=== PATIENT | female | born 1960 | race African-American/Black ===

== ENCOUNTER 2016-11-20 14:35 | Emergency (ER) | payer MEDICAID ==
[~2016-11-20] VITALS: Ht 172.7 cm; Wt 91.0 kg
[~2016-11-20 14:35] MED LIST: ASPI-1159 PO; DOCU-138 PO; LISI40TA4 PO; METO-298 PO; MULT-1146 PO; POTA-9 PO
[2016-11-20 14:40] VITALS: BP 165/87
[2016-11-20] MEDS ORDERED: MAGNESIUM/ALUMINUM HYDROXIDE/SIMETHICONE 30ML UDC PO STA (15:21)
[2016-11-20] MEDS ORDERED: VISCOUS LIDOCAINE 2% 15 ML UDC PO STA (15:21)
[2016-11-20 15:44] LABS: BASOPHILS % 0.4 % (0.0-2.0); EOSINOPHILS % 0.8 % (0.0-5.0); HEMATOCRIT. 36.7 % (36.0-48.0); HEMOGLOBIN. 12.6 g/dL (12.0-16.0); LYMPHOCYTES % 24.3 % (20.0-50.0); MEAN CORPUSCULAR HEMOGLOBIN 37.3 pg (28.0-32.0); MEAN CORPUSCULAR VOLUME 108.8 fL (81.0-99.0); MONOCYTES % 4.5 % (2.0-8.0); PLATELET 291 x1000/uL (130-400); RED BLOOD CELL COUNT 3.38 mill/uL (4.2-5.4); RED CELL DISTRIBUTION WIDTH 15.2 % (11.6-14.6)
[2016-11-20 15:45] LABS: CHLORIDE 105 mEq/L (98-107)
[2016-11-20 15:47] LABS: CARBON DIOXIDE 30 mEq/L (21-32)
[2016-11-20 16:57] LABS: CLARITY URINE CLEAR (CLEAR); COLOR URINE YELLOW (YELLOW); GLUCOSE URINE NEGATIVE (NEGATIVE); KETONES URINE NEGATIVE (NEGATIVE); LEUKOCYTE ESTERASE URINE NEGATIVE (NEGATIVE); NITRITE URINE NEGATIVE (NEGATIVE); OCCULT BLOOD URINE NEGATIVE (NEGATIVE); PH URINE 7.5 (4.5-8.0); PROTEIN URINE NEGATIVE (NEGATIVE); SPECIFIC GRAVITY URINE 1.011 (1.005-1.030); UROBILINOGEN URINE 0.2 E.U./dL (0.2-1.0)
== END 2016-11-20 17:25 | disposition home or self-care (01) ==
LOC: ER 15:52
DX: K14.6 Glossodynia (principal); I10 Essential (primary) hypertension; Z79.82 Long term (current) use of aspirin; Z88.5 Allergy status to narcotic agent; Z88.8 Allergy status to other drugs, medicaments and biological substances
CPT/HCPCS: 36415; 80048; 81003; 85025; 99285

== ENCOUNTER 2017-01-12 01:31 | Emergency (ER) | payer MEDICAID ==
[~2017-01-12] VITALS: Ht 154.9 cm; Wt 69.0 kg
[~2017-01-12 01:31] MED LIST changes: -METO-298 PO; +METO-385 PO
[2017-01-12 03:55] VITALS: BP 140/83
[2017-01-12] MEDS ORDERED: ACETAMINOPHEN 500MG TABLET PO ONE (05:00)
== END 2017-01-12 05:20 | disposition home or self-care (01) ==
LOC: ER 01:31
DX: S40.021A Contusion of right upper arm, initial encounter (principal); W22.8XXA Striking against or struck by other objects, initial encounter; Y93.89 Activity, other specified; Y92.89 Other specified places as the place of occurrence of the external cause; I10 Essential (primary) hypertension; Z88.6 Allergy status to analgesic agent; Z88.8 Allergy status to other drugs, medicaments and biological substances; Z88.5 Allergy status to narcotic agent; Z79.82 Long term (current) use of aspirin
CPT/HCPCS: 99283

== ENCOUNTER 2017-01-18 10:05 | Emergency (ER) | payer MEDICAID ==
[~2017-01-18] VITALS: Ht 154.9 cm; Wt 69.0 kg
[2017-01-18 11:48] LABS: BASOPHILS % 0.6 % (0.0-2.0); EOSINOPHILS % 1.2 % (0.0-5.0); HEMATOCRIT. 44.4 % (36.0-48.0); HEMOGLOBIN. 15.2 g/dL (12.0-16.0); MEAN CORPUSCULAR HEMOGLOBIN 32.3 pg (28.0-32.0); MEAN CORPUSCULAR VOLUME 94.5 fL (81.0-99.0); MEAN PLATELET VOLUME 9.5 fl (7.4-10.4); MONOCYTES % 3.8 % (2.0-8.0); NEUTROPHILS % 78.4 % (40.0-76.0); PLATELET 267 x1000/uL (130-400); RED CELL DISTRIBUTION WIDTH 17.1 % (11.6-14.6)
[2017-01-18 11:53] LABS: PARTIAL THROMBOPLASTIN TIME 26.9 sec (23.4-31.0); PROTHROMBIN TIME 10.2 sec (9.4-11.6)
[2017-01-18 12:02] LABS: CARBON DIOXIDE 30 mEq/L (21-32); CHLORIDE 102 mEq/L (98-107); TROPONIN I < 0.02 ng/mL (0.00-0.04)
[2017-01-18 12:03] LABS: CREATINE KINASE 194 IU/L (26-192); CREATINE KINASE MB FRACTION 1.1 ng/mL (0.5-3.6)
[2017-01-18] MEDS ORDERED: ACETAMINOPHEN 325MG TABLET PO ONE (12:30)
[2017-01-18] MEDS ORDERED: POTASSIUM CHLORIDE 20MEQ TABLET SR PO ONE (12:30)
[2017-01-18 12:46] LABS: *AMPHETAMINES SCREEN URINE NEGATIVE (NEGATIVE); *BARBITURATES SCREEN URINE NEGATIVE (NEGATIVE); *BENZODIAZEPINES SCREEN URINE NEGATIVE (NEGATIVE); *COCAINE SCREEN URINE NEGATIVE (NEGATIVE); CANNABINOID URINE SCREEN NEGATIVE (NEGATIVE); METHADONE URINE SCREEN NEGATIVE (NEGATIVE); OPIATES URINE SCREEN NEGATIVE (NEGATIVE); PHENCYCLIDINE URINE SCREEN NEGATIVE (NEGATIVE)
[2017-01-18 13:52] VITALS: BP 133/75
== END 2017-01-18 13:55 | disposition home or self-care (01) ==
LOC: ER 11:32
DX: M79.1 Myalgia (principal); I10 Essential (primary) hypertension; E87.6 Hypokalemia; Z76.0 Encounter for issue of repeat prescription
CPT/HCPCS: 36415; 71010; 80053; 80305; 82550; 82553; 83690; 83735; 83880; 84484; 85025; 85610; 85730; 93005; 99285

== ENCOUNTER 2017-09-08 13:55 | Emergency (ER) | payer MEDICAID ==
[~2017-09-08] VITALS: Ht 154.9 cm; Wt 68.2 kg
[2017-09-08] MEDS ORDERED: TETANUS, DIPHTHERIA, PERTUSSIS VAC/PF 0.5ML (>7YR OLD) IM ONE (14:15)
[2017-09-08 14:40] LABS: BASOPHILS % 0.6 % (0.0-2.0); EOSINOPHILS % 3.9 % (0.0-5.0); HEMATOCRIT. 38.7 % (36.0-48.0); LYMPHOCYTES % 23.8 % (20.0-50.0); MEAN CORPUSCULAR HEMOGLOBIN 28.6 pg (28.0-32.0); MEAN CORPUSCULAR VOLUME 85.4 fL (81.0-99.0); MEAN PLATELET VOLUME 9.2 fl (7.4-10.4); MONOCYTES % 6.5 % (2.0-8.0); NEUTROPHILS % 65.2 % (40.0-76.0); PLATELET 226 x1000/uL (130-400); RED BLOOD CELL COUNT 4.53 mill/uL (4.2-5.4); RED CELL DISTRIBUTION WIDTH 13.4 % (11.6-14.6)
[2017-09-08 14:45] LABS: CHLORIDE 109 mEq/L (98-107)
[2017-09-08] MEDS ORDERED: KETOROLAC 60MG/2ML VIAL IM ONE (16:00)
[2017-09-08 16:14] VITALS: BP 132/78
== END 2017-09-08 16:16 | disposition home or self-care (01) ==
LOC: ER 15:52
DX: M25.571 Pain in right ankle and joints of right foot (principal); I10 Essential (primary) hypertension; Z23 Encounter for immunization; Z88.4 Allergy status to anesthetic agent; Z88.5 Allergy status to narcotic agent; Z88.6 Allergy status to analgesic agent; Z88.8 Allergy status to other drugs, medicaments and biological substances; Z79.82 Long term (current) use of aspirin
CPT/HCPCS: 36415; 73610; 80048; 85025; 96372; 99285; J1885; Z7610; 90715

== ENCOUNTER 2017-11-30 12:26 | Emergency (ER) | payer MEDICAID ==
[~2017-11-30] VITALS: Ht 162.6 cm; Wt 69.9 kg
[2017-11-30 13:07] LABS: BASOPHILS % 0.6 % (0.0-2.0); EOSINOPHILS % 2.1 % (0.0-5.0); HEMATOCRIT. 39.5 % (36.0-48.0); HEMOGLOBIN. 13.6 g/dL (12.0-16.0); LYMPHOCYTES % 15.9 % (20.0-50.0); MEAN CORPUSCULAR HEMOGLOBIN 29.3 pg (28.0-32.0); MEAN CORPUSCULAR VOLUME 85.1 fL (81.0-99.0); MEAN PLATELET VOLUME 9.4 fl (7.4-10.4); MONOCYTES % 4.8 % (2.0-8.0); NEUTROPHILS % 76.6 % (40.0-76.0); PLATELET 252 x1000/uL (130-400); RED BLOOD CELL COUNT 4.64 mill/uL (4.2-5.4); RED CELL DISTRIBUTION WIDTH 13.2 % (11.6-14.6)
[2017-11-30 13:12] LABS: CHLORIDE 107 mEq/L (98-107)
[2017-11-30 13:14] LABS: PROTHROMBIN TIME 10.7 sec (9.4-11.6)
[2017-11-30 15:47] LABS: CLARITY URINE CLEAR (CLEAR); COLOR URINE YELLOW (YELLOW); KETONES URINE NEGATIVE (NEGATIVE); LEUKOCYTE ESTERASE URINE NEGATIVE (NEGATIVE); NITRITE URINE NEGATIVE (NEGATIVE); OCCULT BLOOD URINE NEGATIVE (NEGATIVE); PH URINE 5.5 (4.5-8.0); PROTEIN URINE NEGATIVE (NEGATIVE); SPECIFIC GRAVITY URINE 1.022 (1.005-1.030)
[2017-11-30] MEDS ORDERED: FAMOTIDINE 20MG/2ML VIAL IV ONE (16:00)
[2017-11-30] MEDS ORDERED: ONDANSETRON 4MG ODT PO STA (17:06)
[2017-11-30] MEDS ORDERED: VISCOUS LIDOCAINE 2% 15 ML UDC PO STA (17:06)
[2017-11-30] MEDS ORDERED: DICYCLOMINE 10 MG/5 ML ORAL SYR PO STA (17:06)
[2017-11-30] MEDS ORDERED: MAGNESIUM/ALUMINUM HYDROXIDE/SIMETHICONE 30ML UDC PO STA (17:06)
[2017-11-30] MEDS ORDERED: FAMOTIDINE 20MG TABLET PO ONE (17:15)
[2017-11-30 17:55] VITALS: BP 127/70
== END 2017-11-30 17:57 | disposition home or self-care (01) ==
LOC: ER 13:06
DX: R10.13 Epigastric pain (principal); R05 Cough; I10 Essential (primary) hypertension; Z98.890 Other specified postprocedural states; Z88.6 Allergy status to analgesic agent; Z88.5 Allergy status to narcotic agent
CPT/HCPCS: 36415; 71045; 74176; 80053; 81003; 83690; 85025; 85610; 99285; Q0162; Z7610; J3490

== ENCOUNTER 2017-12-28 14:58 | Emergency (ER) | payer MEDICAID ==
[~2017-12-28] VITALS: Ht 165.1 cm; Wt 70.3 kg
[2017-12-28] MEDS ORDERED: IPRATROPIUM BROMIDE (0.02%) 0.5MG/2.5ML NEB HHN STA (17:05)
[2017-12-28] MEDS ORDERED: ALBUTEROL (0.083%) 2.5MG/3ML NEB HHN STA (17:05)
[2017-12-28 18:24] VITALS: BP 150/71
== END 2017-12-28 18:36 | disposition home or self-care (01) ==
LOC: ER 16:42
DX: R06.02 Shortness of breath (principal); J01.90 Acute sinusitis, unspecified; T37.0X5A Adverse effect of sulfonamides, initial encounter; Y92.098 Other place in other non-institutional residence as the place of occurrence of the external cause; I10 Essential (primary) hypertension; Z88.8 Allergy status to other drugs, medicaments and biological substances; Z88.5 Allergy status to narcotic agent; Z79.899 Other long term (current) drug therapy
CPT/HCPCS: 94640; 99283; J7611

== ENCOUNTER 2018-04-14 13:10 | Emergency (ER) | payer MEDICAID ==
[~2018-04-14] VITALS: Ht 154.9 cm; Wt 70.0 kg
[~2018-04-14 13:10] MED LIST changes: +ALBU18HF2 IH; +CLAR10 PO; +MOME13HF2 INH; +MONT10TA21 PO; +P20 MT; +PRED10TA MT; +PRED5TAB MT
[2018-04-14] MEDS ORDERED: KETOROLAC 30MG/ML VIAL IM ONE (14:45)
[2018-04-14] MEDS ORDERED: DEXAMETHASONE 4MG TABLET PO ONE (14:45)
[2018-04-14] MEDS ORDERED: ALBUTEROL (0.5%) 2.5MG/0.5ML NEB HHN ONE (14:45)
[2018-04-14 16:00] VITALS: BP 156/101
== END 2018-04-14 16:06 | disposition home or self-care (01) ==
LOC: ER 13:10
DX: J06.9 Acute upper respiratory infection, unspecified (principal); I10 Essential (primary) hypertension; J30.89 Other allergic rhinitis
CPT/HCPCS: 96372; 99283; J1885; J7611; J8540

== ENCOUNTER 2018-05-14 17:37 | Emergency (ER) | payer MEDICAID ==
[2018-05-15] MEDS ORDERED: KETOROLAC 15MG/ML VIAL IV ONE (00:30)
[2018-05-15] MEDS ORDERED: METOCLOPRAMIDE HCL 10MG/2ML VIAL IV ONE (00:30)
[2018-05-15] MEDS ORDERED: DIPHENHYDRAMINE 50MG/ML VIAL IV ONE (00:30)
[2018-05-15 01:41] LABS: BASOPHILS % 0.6 % (0.0-2.0); EOSINOPHILS % 2.2 % (0.0-5.0); HEMATOCRIT. 42.8 % (36.0-48.0); HEMOGLOBIN. 14.1 g/dL (12.0-16.0); LYMPHOCYTES % 27.4 % (20.0-50.0); MEAN CORPUSCULAR HEMOGLOBIN 28.5 pg (28.0-32.0); MEAN CORPUSCULAR VOLUME 86.6 fL (81.0-99.0); MONOCYTES % 6.6 % (2.0-8.0); NEUTROPHILS % 63.2 % (40.0-76.0); PLATELET 277 x1000/uL (130-400); RED BLOOD CELL COUNT 4.95 mill/uL (4.2-5.4); RED CELL DISTRIBUTION WIDTH 13.3 % (11.6-14.6)
[2018-05-15 01:44] LABS: CHLORIDE 105 mEq/L (98-107)
[2018-05-15 02:51] VITALS: BP 135/55
== END 2018-05-15 02:52 | disposition home or self-care (01) ==
LOC: ER 17:37
DX: I10 Essential (primary) hypertension (principal); R51 Headache; R42 Dizziness and giddiness; K21.9 Gastro-esophageal reflux disease without esophagitis; Z91.14 Patient's other noncompliance with medication regimen; Z98.890 Other specified postprocedural states; Z79.82 Long term (current) use of aspirin; Z79.899 Other long term (current) drug therapy; Z88.6 Allergy status to analgesic agent; Z88.8 Allergy status to other drugs, medicaments and biological substances; Z88.5 Allergy status to narcotic agent
CPT/HCPCS: 36415; 71045; 80053; 84484; 85025; 93005; 96374; 99284; J1885

== ENCOUNTER 2018-08-07 10:58 | Emergency (ER) | payer MEDICAID ==
[~2018-08-07] VITALS: Ht 154.9 cm; Wt 73.0 kg
[2018-08-07] MEDS ORDERED: MECLIZINE 25MG TABLET PO ONE (11:45)
[2018-08-07] MEDS ORDERED: ONDANSETRON HCL 4MG/2ML INJ IV ONE (11:45)
[2018-08-07 12:11] LABS: BASOPHILS % 0.5 % (0.0-2.0); EOSINOPHILS % 1.5 % (0.0-5.0); HEMATOCRIT. 38.7 % (36.0-48.0); HEMOGLOBIN. 12.8 g/dL (12.0-16.0); LYMPHOCYTES % 18.1 % (20.0-50.0); MEAN CORPUSCULAR VOLUME 84.7 fL (81.0-99.0); MEAN PLATELET VOLUME 8.9 fl (7.4-10.4); MONOCYTES % 5.1 % (2.0-8.0); NEUTROPHILS % 74.8 % (40.0-76.0); PLATELET 234 x1000/uL (130-400); RED BLOOD CELL COUNT 4.57 mill/uL (4.2-5.4); RED CELL DISTRIBUTION WIDTH 13.5 % (11.6-14.6)
[2018-08-07 12:16] LABS: CHLORIDE 108 mEq/L (98-107)
[2018-08-07 12:30] VITALS: BP 137/72
[2018-08-07] MEDS ORDERED: POTASSIUM CHLORIDE 20MEQ TABLET SR PO ONE (12:45)
[2018-08-07] MEDS ORDERED: ONDANSETRON 4MG ODT PO ONE (13:00)
== END 2018-08-07 13:27 | disposition home or self-care (01) ==
LOC: ER 10:58
DX: R42 Dizziness and giddiness (principal); E87.6 Hypokalemia
CPT/HCPCS: 36415; 70450; 80053; 85025; 93005; 99284; J8597; Q0162; Z7610; J2405

== ENCOUNTER 2024-07-26 13:54 | Emergency (ER) | payer MEDICARE, MEDICAID ==
[~2024-07-26] VITALS: Ht 154.9 cm; Wt 61.0 kg
[~2024-07-26 13:54] MED LIST changes: -ASPI-1159 PO; +ASPI-1497 PO; +LISI40TA13 PO; -LISI40TA4 PO; +MOME13HF12 INH; -MOME13HF2 INH; +MONT-46 PO; -MONT10TA21 PO; +POTA-203 PO; -POTA-9 PO
[2024-07-26 14:14] VITALS: O2SAT 99
[2024-07-26] MEDS: ACETAMINOPHEN 325MG TABLET PO ONE (18:32)
[2024-07-26] MEDS: LIDOCAINE 5% PATCH TOP SCH (18:32)
[2024-07-26] MEDS: KETOROLAC 30MG/ML VIAL IM ONE (18:32)
[2024-07-26] MEDS ORDERED: LIDO700A15 TP (18:51)
[2024-07-26] MEDS ORDERED: ACET-2708 MT (18:51)
[2024-07-26 21:04] VITALS: BP 151/72; PULSE 80; RESP 18; TEMP 36.6; O2SAT 99
== END 2024-07-26 21:06 | disposition home or self-care (01) ==
LOC: ER 13:54
DX: S20.219A Contusion of unspecified front wall of thorax, initial encounter (principal); M79.604 Pain in right leg; I10 Essential (primary) hypertension; K21.9 Gastro-esophageal reflux disease without esophagitis; Z98.890 Other specified postprocedural states; Z88.5 Allergy status to narcotic agent; Z79.899 Other long term (current) drug therapy; W01.0XXA Fall on same level from slipping, tripping and stumbling without subsequent striking against object, initial encounter; Y93.01 Activity, walking, marching and hiking; Y92.89 Other specified places as the place of occurrence of the external cause; Y99.8 Other external cause status
CPT/HCPCS: 99285; 71111; 73562; 73590; 73610; 96372; J1885